=== PATIENT | female | born 1965 | race Caucasian/White ===

== ENCOUNTER 2018-12-02 09:40 | Observation (INO) | payer MEDICAID ==
[~2018-12-02] VITALS: Ht 154.9 cm; Wt 64.3 kg
[2018-12-02] MEDS ORDERED: ASPIRIN 81 MG TAB PO STA (10:18)
[2018-12-02] MEDS ORDERED: NITROGLYCERIN 2% 1 GM OINT PKT TD STA (10:18)
[2018-12-02] MEDS ORDERED: NITROGLYCERIN (SL) 0.4 MG TAB SL PRN (10:30)
[2018-12-02] MEDS ORDERED: ASPI-817 PO (10:37)
[2018-12-02] MEDS ORDERED: AMLO-145 PO (10:37)
[2018-12-02] MEDS ORDERED: PRAV10TA43 PO (10:37)
[2018-12-02] MEDS ORDERED: ONDANSETRON 4 MG INJ IV PRN (11:30)
--- NOTE | 2018-12-02 12:48 | ERD ---
ER Documentation Chief Complaint Chief Complaint Complains of left forearm pain radiates to HPI Patient is a 52-year-old female with hypertension and high cholesterol who presents with chest pain and palpitations. She said they started last night. She felt tired with decreased energy. She has midsternal chest pain which radiates down her left arm. It is been constant since last night. Upon review of old medical records this is the patient's first visit to the emergency department. She does have a primary doctor. ROS All systems reviewed and are negative except as per history of present illness. Medications Home Meds Reported Medications Pravastatin Sodium* (Pravastatin Sodium*) 10 Mg Tablet, 10 MG PO HS, TAB 12/02/18 Amlodipine Besylate* (Amlodipine Besylate*) 5 Mg Tablet, 5 MG PO DAILY, #30 TAB 12/02/18 Aspirin* (Aspirin* EC) 81 Mg Tablet.dr, 81 MG PO DAILY, TAB 12/02/18 Allergies Allergies: Coded Allergies: No Known Allergy (Unverified , 12/02/18) PMhx/Soc History of Surgery: Yes (, RT FOOT) Anesthesia Reaction: No Hx Neurological Disorder: No Hx Respiratory Disorders: No Hx Cardiac Disorders: Yes (HTN, HIGH CHOLESTEROL) Hx Psychiatric Problems: No Hx Miscellaneous Medical Probl: No Hx Alcohol Use: No Hx Substance Use: No Hx Tobacco Use: No Smoking Status: Never smoker FmHx Family History: coronary disease Physical Exam Vitals Vital Signs Date Temp Pulse Resp B/P (MAP) Pulse Ox O2 O2 Flow FiO2 Time Delivery Rate 12/02/18 99.7 56 17 129/78 100 Room Air 11:30 (95) 12/02/18 99.7 74 20 148/72 96 09:50 (97) Physical Exam Const: No acute distress Head: Atraumatic Eyes: Normal Conjunctiva ENT: Normal External Ears, Nose and Mouth. Neck: Full range of motion. No meningismus. Resp: Clear to auscultation bilaterally Cardio: Regular rate and rhythm, no murmurs Abd: Soft, non tender, non distended. Normal bowel sounds Skin: No petechiae or rashes Back: No midline or flank tenderness Ext: No cyanosis, or edema Neur: Awake and alert Psych: Normal Mood and Affect Result Diagram: 12/02/18 1017 12/02/18 1017 Results 24 hrs Laboratory Tests Test 12/02/18 10:17 White Blood Count 4.3 10^3/ul Red Blood Count 4.59 10^6/ul Hemoglobin 14.2 g/dl Hematocrit 41.3 % Mean Corpuscular Volume 90.0 fl Mean Corpuscular Hemoglobin 30.9 pg Mean Corpuscular Hemoglobin Concent 34.4 g/dl Red Cell Distribution Width 11.9 % Platelet Count 298 10^3/UL Mean Platelet Volume 10.5 fl Immature Granulocytes % 0.200 % Neutrophils % 53.2 % Lymphocytes % 34.5 % Monocytes % 7.7 % Eosinophils % 3.5 % Basophils % 0.9 % Nucleated Red Blood Cells % 0.0 /100WBC Immature Granulocytes # 0.010 10^3/ul Neutrophils # 2.3 10^3/ul Lymphocytes # 1.5 10^3/ul Monocytes # 0.3 10^3/ul Eosinophils # 0.2 10^3/ul Basophils # 0.0 10^3/ul Nucleated Red Blood Cells # 0.0 10^3/ul Sodium Level 142 mmol/L Potassium Level 3.8 mmol/L Chloride Level 105 mmol/L Carbon Dioxide Level 26 mmol/L Anion Gap 11 Blood Urea Nitrogen 14 mg/dl Creatinine 0.59 mg/dl Est Glomerular Filtrat Rate mL/min > 60 mL/min Glucose Level 106 mg/dl Calcium Level 9.1 mg/dl Troponin I < 0.012 ng/ml Current Medications Medications Dose Sig/Mikael Start Time Status Last (Trade) Ordered Route PRN Stop Time Admin Dose Reason Admin Aspirin 162 mg ONCE STAT 12/02/18 DC 12/02/18 (Aspirin) PO 10:18 12/02/18 10:57 10:19 1 inch ONCE STAT 12/02/18 DC 12/02/18 Nitroglycerin TD 10:18 12/02/18 10:58 10:19 (Nitroglyceri n 2% Oint) 1 tab Q5M UP TO 3 12/02/18 Nitroglycerin DOSES PRN 10:30 SL .CHEST (Nitroglyceri PAIN n (Sl Tab) 0.4 Mg) Ondansetron 4 mg ER BRIDGE 12/02/18 HCl (Zofran PRN IV 11:30 12/03/18 Inj) NAUSEA/VOMITI 11:29 NG 650 mg ER BRIDGE 12/02/18 Acetaminophen PRN PO 11:30 12/03/18 (Tylenol .MILD PAIN 11:29 Tab) 1-3 OR TEMP Procedures/MDM EKG read by me: Rate/Rhythm: Regular rate and rhythm at a normal rate Intervals: Normal Impression: No evidence of ischemia or arrhythmia Chest x-ray read by radiology. Patient is a 52-year-old female with hypertension and high cholesterol presents with palpitations and chest pain. I am concerned for potential acute coronary syndrome. The patient was given aspirin and nitroglycerin. She will be admitted to the care of the panel team to a telemetry observation bed. Initial troponin is negative. I doubt pneumonia, pneumothorax, pulmonary embolism, or aortic dissection. Departure Diagnosis: Primary Impression: Chest pain Chest pain type: unspecified Qualified Codes: R07.9 - Chest pain, unspecified Additional Impression: Palpitations Condition: VIRAJ Lopez MD Dec 02, 2018 12:47
--- NOTE | 2018-12-02 13:14 | HP ---
Date/Time of Note Date/Time of Note DATE: 12/02/18 TIME: 13:09 Assessment/Plan VTE Prophylaxis Pharmacological prophylaxis: heparin Lines/Catheters IV Catheter Type (from [facility]): [facility] Assessment/Plan Hospital Course 52-year-old female who presents with chest pain and palpitations episode which began last night. No objective findings on exam or labs at this point to explain. -We will monitor on telemetry to exclude an arrhythmia -Cycle troponins to exclude ACS -Check echocardiogram -Check a d-dimer to exclude pulmonary embolism -Check TSH Result Diagram: 12/02/18 1017 12/02/18 1017 Results 24hrs Laboratory Tests Test 12/02/18 10:17 White Blood Count 4.3 L Red Blood Count 4.59 Hemoglobin 14.2 Hematocrit 41.3 Mean Corpuscular Volume 90.0 Mean Corpuscular Hemoglobin 30.9 Mean Corpuscular Hemoglobin Concent 34.4 Red Cell Distribution Width 11.9 Platelet Count 298 Mean Platelet Volume 10.5 H Immature Granulocytes % 0.200 Neutrophils % 53.2 Lymphocytes % 34.5 Monocytes % 7.7 Eosinophils % 3.5 Basophils % 0.9 Nucleated Red Blood Cells % 0.0 Immature Granulocytes # 0.010 Neutrophils # 2.3 Lymphocytes # 1.5 Monocytes # 0.3 Eosinophils # 0.2 Basophils # 0.0 Nucleated Red Blood Cells # 0.0 Sodium Level 142 Potassium Level 3.8 Chloride Level 105 Carbon Dioxide Level 26 Anion Gap 11 Blood Urea Nitrogen 14 Creatinine 0.59 Est Glomerular Filtrat Rate mL/min > 60 Glucose Level 106 Calcium Level 9.1 Troponin I < 0.012 HPI/ROS Admit Date/Time Admit Date/Time Hx of Present Illness This is a 48-year-old female with a history of hypertension who presents with chest syndrome since yesterday Patient was in usual state of health yesterday evening she was watching TV in her calf when she began to feel some tightness in her chest and pain radiating down her arm. This was associated with abnormal heartbeats feelings of nausea and vertigo. She has never felt like anything like this in her life. She was nervous and decided to come to the hospital today for evaluation. She does not seem to have any current symptoms other than feeling very sleepy and fatigued. She does not describe any exertional angina with this or ever in her life. No cough, no fevers, no chills. No orthoponea or edema ROS Constitutional: no complaints, improved Eyes: no complaints ENT: no complaints Respiratory: no complaints Cardiovascular: no complaints Gastrointestinal: no complaints Genitourinary: no complaints Musculoskeletal: no complaints Skin: no complaints Neurologic: no complaints Endocrine: no complaints Lymphatic: no complaints Psychological: no complaints, nl mood/affect Immunologic: no complaints PMH/Family/Social Past Medical History Medical History: no pertinent history Medications Current Medications Nitroglycerin (Nitroglycerin (Sl Tab) 0.4 Mg) 1 tab Q5M UP TO 3 DOSES PRN SL .CHEST PAIN; Start 12/02/18 at 10:30 Ondansetron HCl (Zofran Inj) 4 mg ER BRIDGE PRN IV NAUSEA/VOMITING; Start 12/02/18 at 11:30; Stop 12/03/18 at 11:29 Acetaminophen (Tylenol Tab) 650 mg ER BRIDGE PRN PO .MILD PAIN 1-3 OR TEMP; Start 12/02/18 at 11:30; Stop 12/03/18 at 11:29 Coded Allergies: No Known Allergy (Unverified , 12/02/18) Past Surgical History Past Surgical Hx: no surgical history Family History Significant Family History: no pertinent family hx Social History Alcohol Use: none Smoking Status: Never smoker Drug Use: none Exam/Review of Systems Vital Signs Vitals Vital Signs Date Temp Pulse Resp B/P (MAP) Pulse Ox O2 O2 Flow FiO2 Time Delivery Rate 12/02/18 99.7 56 17 129/78 100 Room Air 11:30 (95) Exam Constitutional: alert, oriented, well developed Psych: no complaints, nl mood/affect Head: normocephalic, atraumatic Eyes: nl conjunctiva, EOMI, nl lids, nl sclera, PERRL ENMT: nl external ears & nose, nl lips & teeth, nl nasal mucosa & septum Neck: supple, non-tender Respiratory: clear to auscultation, normal air movement Cardiovascular: regular rate and rhythm, nl pulses Gastrointestinal: soft, nl liver, spleen, non-tender Musculoskeletal: nl extremities to inspection Extremities: normal pulses Neurological: [employer] II-XII intact, nl mental status, nl speech, nl strength Skin: nl turgor; No rash or lesions Lymph: nl lymph nodes VIVI ESTRADA MD Dec 02, 2018 13:14
[2018-12-02] MEDS ORDERED: NACL 0.9% 3 ML SYG IV SCH (13:30)
[2018-12-02] MEDS ORDERED: HYDROCODONE/APAP (5/325) TAB PO PRN (13:30)
[2018-12-02 14:01] VITALS: BP 125/76; PULSE 64; RESP 18
[2018-12-02 15:23] VITALS: PULSE 69
[2018-12-02 15:28] VITALS: BP 119/70; PULSE 68; RESP 19
[2018-12-02 16:15] VITALS: PULSE 75
[2018-12-02] MEDS: ACETAMINOPHEN 325 MG TAB PO PRN ×2 (17:07→23:33)
[2018-12-02 20:00] VITALS: BP 113/72; PULSE 69; RESP 18
[2018-12-02 20:38] VITALS: PULSE 84
[2018-12-02 22:03] VITALS: Ht 154.9 cm; Wt 64.3 kg
[2018-12-03] VITALS (8 sets, daily range): BP systolic 107–130; BP diastolic 70–74; PULSE 56–82; RESP 18
[2018-12-03] MEDS ORDERED: ACETAMINOPHEN 325 MG TAB PO PRN (00:30)
--- NOTE | 2018-12-03 14:32 | DS ---
Date/Time of Note Date/Time of Note DATE: 12/03/18 TIME: 14:31 Discharge Summary Admission/Discharge Info Admit Date/Time Dec 02, 2018 at 11:05 Discharge Date/Time Discharge Diagnosis Atypcial chest pain Patient Condition: Stable Hx of Present Illness This is a 48-year-old female with a history of hypertension who presents with chest syndrome since yesterday Patient was in usual state of health yesterday evening she was watching TV in her calf when she began to feel some tightness in her chest and pain radiating down her arm. This was associated with abnormal heartbeats feelings of nausea and vertigo. She has never felt like anything like this in her life. She was nervous and decided to come to the hospital today for evaluation. She does not seem to have any current symptoms other than feeling very sleepy and fatigued. She does not describe any exertional angina with this or ever in her life. No cough, no fevers, no chills. No orthoponea or edema Hospital Course Patient was monitored on telemetry without sign of arrythmia EKG and troponin were negative for ACS TSH normal Labs normal She reported significant anxiety and stress in her life. Sleep distrubances. I suspect her symptoms are related to mood symptoms and she agrees after lengthy discussion. She denies depression or suicidal ideation. I recommended she discuss her symtpoms with her primary care provider. Home Meds Reported Medications Pravastatin Sodium* (Pravastatin Sodium*) 10 Mg Tablet, 10 MG PO HS, TAB 12/02/18 Amlodipine Besylate* (Amlodipine Besylate*) 5 Mg Tablet, 5 MG PO DAILY, #30 TAB 12/02/18 Aspirin* (Aspirin* EC) 81 Mg Tablet.dr, 81 MG PO DAILY, TAB 12/02/18 Primary Care Provider Care Physician No Primary Pending Labs Laboratory Tests Test 12/02/18 16:07 12/02/18 17:28 12/02/18 23:19 12/03/18 05:41 Creatine 64 60 Kinase IU/L (23-200) IU/L (23-200) Creatine Kinase 0.8 0.6 Index Creatinine 0.49 0.38 Kinase MB ng/ml (0.0-2.4) ng/ml (0.0-2.4 (Mass) ) Troponin I < 0.012 < 0.012 < 0.012 ng/ml (0.000-0. ng/ml (0.000-0 ng/ml (0.000-0 120) .120) .120) White Blood 7.4 Count 10^3/ul (4.8-1 0.8) Red Blood 4.57 Count 10^6/ul (4.20- 5.40) Hemoglobin 14.1 g/dl (12.0-16. 0) Hematocrit 41.8 % (37.0-47.0) Mean 91.5 Corpuscular fl (82.0-101.0 Volume ) Mean 30.9 Corpuscular pg (29.0-33.0) Hemoglobin Mean 33.7 Corpuscular g/dl (32.0-37. Hemoglobin Conc 0) ent Red Cell 11.9 Distribution % (11.5-14.5) Width Platelet Count 304 10^3/UL (140-4 15) Mean Platelet 11.2 Volume fl (7.4-10.4) Immature 0.100 Granulocytes % % (0.001-0.429 ) Neutrophils % 70.1 % (39.0-77.0) Lymphocytes % 17.2 % (15.0-51.0) Monocytes % 9.1 % (0.0-11.0) Eosinophils % 2.6 % (0.0-7.0) Basophils % 0.9 % (0.0-2.0) Nucleated Red 0.0 Blood Cells % /100WBC (0.0-0 .0) Immature 0.010 Granulocytes # 10^3/ul (0.0-0 .031) Neutrophils # 5.2 10^3/ul (1.6-7 .5) Lymphocytes # 1.3 10^3/ul (0.8-2 .9) Monocytes # 0.7 10^3/ul (0.3-0 .9) Eosinophils # 0.2 10^3/ul (0.0-0 .5) Basophils # 0.1 10^3/ul (0.0-0 .1) Nucleated Red 0.0 Blood Cells # 10^3/ul (0.0-0 .0) Sodium Level 141 mmol/L (135-14 4) Potassium 3.8 Level mmol/L (3.5-5. 1) Chloride Level 104 mmol/L (97-110 ) Carbon Dioxide 25 Level mmol/L (21-31) Anion Gap 12 (5-13) Blood Urea 15 Nitrogen mg/dl (7-20) Creatinine 0.60 mg/dl (0.44-1. 00) Est Glomerular > 60 Filtrat mL/min (>60) Rate mL/min Glucose Level 104 mg/dl (70-220) Hemoglobin A1c 5.3 % (0-5.9) Calcium Level 9.3 mg/dl (8.4-10. 2) Total 0.9 Bilirubin mg/dl (0.2-1.3 ) Direct 0.00 Bilirubin mg/dl (0.00-0. 20) Indirect 0.9 Bilirubin mg/dl (0-1.1) Aspartate Amino 24 Transf (AST/SGO IU/L (15-46) T) Alanine 26 Aminotransferas IU/L (13-69) e (ALT/SGPT) Alkaline 84 Phosphatase IU/L (42-121) Total Protein 7.1 g/dl (6.1-8.1) Albumin 4.1 g/dl (3.3-4.9) Globulin 3.00 g/dl (1.3-3.2) Albumin/Globuli 1.36 n Ratio VIVI ESTRADA MD Dec 03, 2018 14:32
--- NOTE | 2018-12-03 16:07 | RADRPT ---
Echocardiogram Report Patient Name: Rosalba FORREST ID: [id number] : 1965 (52y 11m)Study Date: 12/03/2018 10:43:13 AM Gender: FAccession #: [id number] Tech: Neptali Montanez [facility] Location: 521-A Ref.Physician: VIVI ESTRADA Height(Cm): BSA: Weight(Kg): Quality: AdequateAccount #: Procedures: Echocardiographic Report: Transthoracic echocardiogram with complete 2D, M-Mode, and doppler examination. Indications: Low Voltage. Measurements: 2D/M Mode Doppler Measurement Value Normal Range Measurement Value Normal Range LVIDd 2D 4.4 [ 3.8 - 5.2 ] cm AV Peak Brando 1.5 [ 100.0 - 170.0 ] cm/sec LVIDs 2D 2.9 [ 2.2 - 3.5 ] cm AV Peak PG 9.0 [ 2.0 - 9.0 ] mmHg LVPWd 2D 0.7 [ 0.6 - 0.9 ] cm LVOT Peak Brando 1.0 [ 70.0 - 110.0 ] cm/sec IVSd 2D 0.9 [ 0.6 - 0.9 ] cm LVOT Peak PG 4.0 [ 2.0 - 6.0 ] mmHg IVS/LVPW 2D 1.3 ratio MV E Peak Brando 0.5 [ 60.0 - 130.0 ] cm/sec AoR Diam 2D 2.7 [ 2.3 - 3.1 ] cm MV A Peak Brando 0.6 [ 100.0 - 120.0 ] cm/sec LA/Ao 2D 1 ratio MV E/A 0.9 [ 0.8 - 1.5 ] ratio LA Dimen 2D 3.9 [ 2.7 - 3.8 ] cm MV Decel Time 194 [ 104 - 258 ] msec Lat E` Brando 0.1 [ 10.0 - 15.0 ] cm/sec Med E` Brando 0.1 cm/sec MV E/A 0.9 [ 0.8 - 1.5 ] ratio TR Peak Brando 2.8 [ 100.0 - 280.0 ] cm/sec TR Peak PG 32.0 mmHg RVSP 35.0 [ 10.0 - 36.0 ] mmHg Findings: Left Ventricle: Normal left ventricular systolic function. Normal left ventricular cavity size. Normal left ventricular wall thickness. Ejection fraction is visually estimated at 65 %. Tissue Doppler/Mitral Doppler indices are consistent with impaired relaxation (Stage I diastolic dysfunction). Right Ventricle: Normal right ventricular size. Normal right ventricular systolic function. Left Atrium: There is mild enlargement of left atrium. Right Atrium: The right atrium is normal in size. Mitral Valve: Mild mitral leaflet calcification. Mild mitral annular calcification. Trace mitral regurgitation. Aortic Valve: No significant aortic stenosis or insufficiency. Aortic sclerosis without significant stenosis. Tricuspid Valve: Normal appearance of the tricuspid valve. Estimated peak PA systolic pressure 35 mmHg. There is mild tricuspid regurgitation. Pulmonic Valve: Pulmonic valve not well visualized. Pericardium: Normal pericardium with no significant pericardial effusion. Aorta: Normal aortic root. IVC: Normal size and normal respiratory collapse consistent with normal right atrial pressure. Conclusions: Normal left ventricular systolic function. Normal left ventricular cavity size. Normal left ventricular wall thickness. Ejection fraction is visually estimated at 65 %. Tissue Doppler/Mitral Doppler indices are consistent with impaired relaxation (Stage I diastolic dysfunction). No significant aortic stenosis or insufficiency. Aortic sclerosis without significant stenosis. Estimated peak PA systolic pressure 35 mmHg. Normal size and normal respiratory collapse consistent with normal right atrial pressure. Electronically Signed By: Adrián Enamorado 2018-12-03 16:06:49 PST
== END 2018-12-03 15:05 | disposition home or self-care (01) ==
LOC: E/R 09:40 → TEL 11:05
PROVIDERS: ADMIT Internal Medicine; ATTEND Internal Medicine
DX: R07.89 Other chest pain (principal); I10 Essential (primary) hypertension; E78.00 Pure hypercholesterolemia, unspecified; Z79.82 Long term (current) use of aspirin
CPT/HCPCS: 36415; 71045; 80048; 80053; 82550; 82553; 83036; 84443; 84484; 85025; 85378; 93005; 93306; Z7500; Z7502; Z7610; G0378